=== PATIENT | male | born 1940 | race Caucasian/White ===

== ENCOUNTER → 2017-04-23 | Outpatient (CLI) | payer OTHER ==
[~2017-04-23] MED LIST: ADULT LOW DOSE81 MG PO; ADVAIR HFA 1112 UNIT INH; ADVAIR HFA115 MCG/21 INH; APAP500 PO; COLACE 100 MG100 MG PO; FLOMAX0.4 MG PO; HYDROCODONE-AP1 EAC6 PO; IRON PO; LASIX 40 MG TAB40 M2 PO; LEVAQUIN 500 M500 M2 PO; LIPITOR 20 MG T20 M1 PO; MELATONIN5 M1 PO; MUCINEX TA600 MG/TA1 PO; NAPROSYN500 MG PO; NEURONTIN 300300 M1 PO; NEXIUM40 M2 PO; NYSTATIN 1100000 U/M PO; PREDNISONE 10 M10 MG PO; PROAIR HFA8.5 GM INH; PROSCAR 5MG TABL5 MG PO; SPIRIVA INH; SYMBICORT160 MCG/4. INH; VITAMIN D1000 UNI1 PO
== END ==
LOC: CAT 08:06
DX: R91.8 Other nonspecific abnormal finding of lung field (principal)

== ENCOUNTER → 2017-08-23 | Outpatient (CLI) | payer OTHER | LOC: NUC 08-20 10:23 | DX: E21.3 Hyperparathyroidism, unspecified (principal) ==

== ENCOUNTER → 2017-08-24 | Outpatient (CLI) | payer OTHER | LOC: CAT 12:46 | DX: I31.3 Pericardial effusion (noninflammatory) (principal); R91.8 Other nonspecific abnormal finding of lung field; J90 Pleural effusion, not elsewhere classified ==

== ENCOUNTER → 2017-11-26 | Outpatient (CLI) | payer OTHER | LOC: ULTRA 11-05 21:21 | DX: E21.3 Hyperparathyroidism, unspecified (principal); R94.6 Abnormal results of thyroid function studies; I12.9 Hypertensive chronic kidney disease with stage 1 through stage 4 chronic kidney disease, or unspecified chronic kidney disease; N18.9 Chronic kidney disease, unspecified; J18.9 Pneumonia, unspecified organism; J96.20 Acute and chronic respiratory failure, unspecified whether with hypoxia or hypercapnia; N17.9 Acute kidney failure, unspecified; J44.1 Chronic obstructive pulmonary disease with (acute) exacerbation; J44.0 Chronic obstructive pulmonary disease with (acute) lower respiratory infection; G31.84 Mild cognitive impairment of uncertain or unknown etiology; I80.9 Phlebitis and thrombophlebitis of unspecified site; N40.0 Benign prostatic hyperplasia without lower urinary tract symptoms; K21.9 Gastro-esophageal reflux disease without esophagitis; E78.5 Hyperlipidemia, unspecified; G62.9 Polyneuropathy, unspecified; Z99.81 Dependence on supplemental oxygen; Z98.890 Other specified postprocedural states; Z87.891 Personal history of nicotine dependence; Z90.49 Acquired absence of other specified parts of digestive tract ==

== ENCOUNTER → 2018-04-12 | Outpatient (CLI) | payer OTHER | LOC: CAT 06:56 | DX: R91.1 Solitary pulmonary nodule (principal); I70.0 Atherosclerosis of aorta; J98.4 Other disorders of lung; M47.894 Other spondylosis, thoracic region; R91.8 Other nonspecific abnormal finding of lung field ==

== ENCOUNTER 2018-10-12 17:20 | Inpatient (IN) | payer OTHER ==
[~2018-10-12] VITALS: Ht 185.4 cm; Wt 59.9 kg
--- NOTE | ~2018-10-12 | EKG ---
[address] [address] ELECTROCARDIOGRAM REPORT Name: MIGUEL RODRIGUEZNE Jose Room #: 456-P ADM IN M.R.#: [id number] Admission: 10/12/18 Attend Phys: Josias Keenan MD Discharge: Date of : 36 Report #: [id number] THIS REPORT FOR: //name// [facility] ED Test Date: 2018-10-12 Test Time: 17:45:32 Pat Name: INDU RODRIGUEZ Department: Room: [facility] Gender: M Philosophy Lecturer: : 1940 Requested By: Lidia Tony Order Number: [id number] MD: José Miguel Adler Measurements Intervals [place] Rate: 99 P: 76 DC: 112 QRS: 65 QRSD: 98 T: 37 QT: 333 QTc: 428 Interpretive Statements Sinus rhythm Left ventricular hypertrophy Non specific ST/T wave changes Compared to ECG 12/13/2016 14:36:22 Left ventricular hypertrophy now present Electronically Signed On 10-13-2018 23:38:47 [employer] by José Miguel Adler [email or web address] <ELECTRONICALLY SIGNED> By: José Miguel Adler MD 10/13/18 2338 1745 [id number] José Miguel Adler MD /EPI
--- NOTE | ~2018-10-12 | 2DMMODE ---
[facility] [place] [address] 2 D/M-MODE ECHOCARDIOGRAM Name: INDU RODRIGUEZ Jose Room #: 456-P [facility] IN ..#: [id number] Admission: 10/12/18 Attend Phys: Fahad Nolen MD Discharge: Date of : 36 Date of Service: 10/16/18 1430 Report #: [id number] THIS REPORT FOR: //name// APPROVED REPORT Study performed: 10/16/2018 12:56:17 EXAM: Comprehensive 2D, Doppler, and color-flow Echocardiogram Patient Location: Bedside Room #: [facility] Status: routine BSA: 1.80 HR: 83 bpm BP: 118/59 mmHg Rhythm: NSR Other Information Study Quality: Adequate Technically limited study due to COPD. Indications High grade staphylococcal bacteremia, short of breath. Hx: COPD, HTN, HLP 2D Dimensions RVDd: 35.47 mm IVSd: 12.00 (7-11mm) LVOT Diam: 21.00 (18-24mm) LVDd: 42.00 mm PWd: 12.00 (7-11mm) LVDs: 23.00 (25-40mm) Aortic Root: 37.00 mm Volumes Left Atrial Volume (Systole) Single Plane 4CH: 21.09 mL Single Plane 2CH: 19.40 mL LA ESV Index: 12.00 mL/m2 Aortic Valve AoV Peak Yrn.: 1.81 m/s AO Peak Gr.: 13.11 mmHg LVOT Max P.26 mmHg LVOT Max V: 1.44 m/s SAMIA Vmax: 2.75 cm2 Mitral Valve E/A Ratio: 0.8 [facility] [address] [place] [address] 2 D/M-MODE ECHOCARDIOGRAM Name: INDU RODRIGUEZ Room #: 456-P [facility]#: [id number] Admission: 10/12/18 Attend Phys: Fahad Nolen MD Discharge: Date of : 36 Date of Service: 10/16/18 1430 Report #: [id number] MV Decel. Time: 214.81 ms MV E Max Yrn.: 0.99 m/s MV A Yrn.: 1.22 m/s MV PHT: 62.29 ms IVRT: 50.75 ms Pulmonary Valve PV Peak Yrn.: 1.42 m/s PV Peak Gr.: 8.09 mmHg Pulmonary Vein P Vein S: 0.71 m/s P Vein A: 0.58 m/s P Vein D: 0.32 m/s P Vein A Dur.: 115.3 msec P Vein S/D Ratio: 2.22 Tricuspid Valve TR Peak Yrn.: 2.89 m/s RAP Estimate: 10.00 mmHg TR Peak Gr.: 33.48 mmHg PA Pressure: 44.00 mmHg Left Ventricle The left ventricle is normal size. There is normal LV segmental wall motion. Mild concentric left ventricular hypertrophy. Left ventricular systolic function is normal. LVEF is 65-70%. Mild diastolic dysfunction is present (impaired relaxation pattern). Right Ventricle The right ventricle is normal size. The right ventricular systolic function is normal. Atria The left atrium size is normal. The right atrium size is normal. Aortic Valve The Aortic valve is sclerotic. No aortic regurgitation is present. There is no aortic valvular stenosis. Mitral Valve The mitral valve is normal in structure. There is no mitral valve regurgitation noted. No evidence of mitral valve stenosis. Tricuspid Valve The tricuspid valve is normal in structure. Trace tricuspid regurgitation. Estimated PAP is 40-45mmHg. [place] [id number] 2 D/M-MODE ECHOCARDIOGRAM Name: INDU RODRIGUEZ Room #: 456-P [facility] IN ..#: [id number] Admission: 10/12/18 Attend Phys: Fahad Nolen MD Discharge: Date of : 36 Date of Service: 10/16/18 1430 Report #: [id number] Pulmonic Valve Pulmonic valve is not well visualized. Great Vessels Aortic root is borderline dilated. Ascending aorta is not well visualized. IVC is normal in size and collapses <50% with inspiration. Pericardium Small anterior pericardial effusion noted. Possible left pleural effusion noted. <Conclusion> The left ventricle is normal size. LVEF is 65-70%. The Aortic valve is sclerotic. The mitral valve is normal in structure. The tricuspid valve is normal in structure. Pulmonic valve is not well visualized. Aortic root is borderline dilated. Ascending aorta is not well visualized. Small anterior pericardial effusion noted. Possible left pleural effusion noted. <ELECTRONICALLY SIGNED> By: José Miguel Adler MD 10/16/18 1430 1430 143 José Miguel Adler MD /INF
[2018-10-12 17:21] VITALS: BP 151/69
[2018-10-12 17:32] LABS: HEMATOCRIT 28.4 % (42.0-52.0); HEMOGLOBIN 9.3 gm/dL (14.0-18.0); MCH 27.7 pg (26.0-34.0); MCHC 32.6 g/dL (28.0-37.0); MCV 84.9 fL (80.0-100.0); RBC 3.35 mil/uL (4.50-6.00); RDW 14.8 % (10.5-14.5); WBC 16.3 thou/uL (4.0-11.0)
[2018-10-12 17:39] LABS: ANION GAP 0 mmol/L (7-16); BUN 29 mg/dL (7-18); CALCIUM 11.6 mg/dL (8.5-10.1); CHLORIDE 103 mmol/L (98-107); CO2 41 mmol/L (21-32); CREATININE 1.2 mg/dL (0.7-1.3); GLUCOSE 123 mg/dL (74-106); POTASSIUM 4.4 mmol/L (3.5-5.1); SODIUM 144 mmol/L (136-145)
[2018-10-12 17:42] LABS: URINE BILIRUBIN NEGATIVE (Negative); URINE BLOOD 1+ (Negative); URINE CLARITY CLEAR; URINE COLOR YELLOW; URINE GLUCOSE-RANDOM* NEGATIVE (Negative); URINE KETONES NEGATIVE (Negative); URINE LEUKOCYTES-REFLEX NEGATIVE (Negative); URINE NITRITE-REFLEX NEGATIVE (Negative); URINE PROTEIN (DIPSTICK) NEGATIVE (Negative); URINE SPECIFIC GRAVITY 1.025 (1.005-1.035); URINE UROBILINOGEN 0.2 E.U./dl (0.2-1.0)
[2018-10-12 17:43] LABS: BACTERIA-REFLEX None Seen /HPF (None Seen); CASTS None Seen /LPF (None Seen); CRYSTALS None Seen /LPF (None Seen); SQUAMOUS None Seen /LPF (0-3); URINE RBC 3-10 Few /HPF (0-2); URINE WBC-REFLEX None Seen /HPF (0-5)
[2018-10-12 17:48] LABS: ALBUMIN 3.5 g/dL (3.4-5.0); SGOT 16 U/L (15-37); SGPT 15 U/L (30-65); TOTAL BILIRUBIN 0.3 mg/dL (<0.1-1.0); TOTAL PROTEIN 8.4 g/dL (6.4-8.2); TROPONIN-I <0.06 ng/mL (<0.06)
[2018-10-12] MEDS ORDERED: CENTRUM SILVER1 EAC4 PO (17:56)
[2018-10-12] MEDS ORDERED: IRON325 PO (17:56)
[2018-10-12] MEDS ORDERED: VITAMIN D2000 UNIT PO (17:57)
[2018-10-12] MEDS ORDERED: MEGESTROL ACETATE PO (17:59)
[2018-10-12] MEDS ORDERED: MUCINEX600 MG PO (18:01)
[2018-10-12] MEDS ORDERED: VENTOLIN HFA INH8 GM INH (18:02)
[2018-10-12] MEDS ORDERED: ALBUTEROL2.5 MG/31 INH (18:02)
[2018-10-12 19:39] VITALS: BP 148/78
[2018-10-12 19:59] VITALS: BP 149/78
[2018-10-12 20:14] VITALS: BP 160/72
[2018-10-13 05:53] LABS: HEMATOCRIT 22.7 % (42.0-52.0); HEMOGLOBIN 7.5 gm/dL (14.0-18.0); MCH 28.1 pg (26.0-34.0); MCHC 33.1 g/dL (28.0-37.0); MCV 84.9 fL (80.0-100.0); RBC 2.67 mil/uL (4.50-6.00); RDW 14.3 % (10.5-14.5)
[2018-10-13 06:03] VITALS: BP 90/48
[2018-10-13 06:04] LABS: CALCIUM 10.7 mg/dL (8.5-10.1); CREATININE 1.2 mg/dL (0.7-1.3); POTASSIUM 4.3 mmol/L (3.5-5.1)
[2018-10-13 07:09] VITALS: BP 93/44
[2018-10-13 14:10] VITALS: BP 109/43
[2018-10-13 21:00] VITALS: BP 87/70
[2018-10-14 02:00] VITALS: BP 160/79
[2018-10-14 06:06] LABS: HEMATOCRIT 23.5 % (42.0-52.0); HEMOGLOBIN 7.6 gm/dL (14.0-18.0); MCH 27.5 pg (26.0-34.0); MCHC 32.3 g/dL (28.0-37.0); MCV 85.2 fL (80.0-100.0); RBC 2.76 mil/uL (4.50-6.00); RDW 14.4 % (10.5-14.5); WBC 8.1 thou/uL (4.0-11.0)
[2018-10-14 06:19] LABS: CALCIUM 10.7 mg/dL (8.5-10.1); CREATININE 1.2 mg/dL (0.7-1.3); POTASSIUM 4.1 mmol/L (3.5-5.1)
[2018-10-14 08:00] VITALS: BP 117/61
[2018-10-14 15:05] VITALS: BP 153/65
[2018-10-14 16:04] VITALS: BP 137/60
[2018-10-14 19:56] VITALS: BP 137/60
[2018-10-14 20:42] VITALS: BP 147/69
[2018-10-15 04:14] VITALS: BP 118/48
[2018-10-15 05:36] LABS: HEMATOCRIT 22.5 % (42.0-52.0); HEMOGLOBIN 7.2 gm/dL (14.0-18.0); MCH 27.4 pg (26.0-34.0); MCHC 32.2 g/dL (28.0-37.0); MCV 84.9 fL (80.0-100.0); RBC 2.65 mil/uL (4.50-6.00); RDW 14.7 % (10.5-14.5); WBC 9.9 thou/uL (4.0-11.0)
[2018-10-15 05:52] LABS: ABSOLUTE RETIC COUNT 0.0226 10^6/uL; OBSERVED RETIC COUNT 0.86 % (0.6-2.6)
[2018-10-15 05:56] LABS: % SATURATION 24 % (20-39); IRON 30 ug/dL (65-175); TIBC 124 ug/dL (250-450)
[2018-10-15 05:59] LABS: CALCIUM 10.2 mg/dL (8.5-10.1); CREATININE 1.3 mg/dL (0.7-1.3); MAGNESIUM 2.1 mg/dL (1.8-2.4); POTASSIUM 4.5 mmol/L (3.5-5.1)
[2018-10-15 07:15] VITALS: BP 104/51
[2018-10-15 07:50] LABS: FERRITIN 501 ng/mL (26-388)
[2018-10-15 15:35] VITALS: BP 110/63
[2018-10-15 19:49] VITALS: BP 120/49
[2018-10-16 04:25] VITALS: BP 130/58
[2018-10-16 09:01] VITALS: BP 118/59
[2018-10-16 16:58] VITALS: BP 138/50
[2018-10-16 20:08] VITALS: BP 130/43
[2018-10-17 04:47] VITALS: BP 126/54
[2018-10-17 07:22] VITALS: BP 108/50
[2018-10-17 13:50] LABS: HEMOGLOBIN 7.7 gm/dL (14.0-18.0); MCH 27.6 pg (26.0-34.0); MCHC 32.1 g/dL (28.0-37.0); MCV 86.1 fL (80.0-100.0); RBC 2.79 mil/uL (4.50-6.00); RDW 14.7 % (10.5-14.5); WBC 9.2 thou/uL (4.0-11.0)
[2018-10-17 14:02] LABS: CALCIUM 10.5 mg/dL (8.5-10.1); CREATININE 1.3 mg/dL (0.7-1.3); MAGNESIUM 2.5 mg/dL (1.8-2.4); POTASSIUM 4.9 mmol/L (3.5-5.1)
[2018-10-17 14:43] VITALS: BP 113/59
[2018-10-17 19:54] VITALS: BP 118/45
[2018-10-18 03:28] VITALS: BP 107/68
[2018-10-18 05:51] LABS: HEMOGLOBIN 6.5 gm/dL (14.0-18.0); MCH 28.2 pg (26.0-34.0); MCHC 32.8 g/dL (28.0-37.0); MCV 85.9 fL (80.0-100.0); RBC 2.32 mil/uL (4.50-6.00); RDW 14.3 % (10.5-14.5)
[2018-10-18 05:56] LABS: HEMATOCRIT 19.9 % (42.0-52.0)
[2018-10-18 06:03] LABS: CALCIUM 9.8 mg/dL (8.5-10.1); CREATININE 1.3 mg/dL (0.7-1.3); MAGNESIUM 2.5 mg/dL (1.8-2.4); POTASSIUM 4.8 mmol/L (3.5-5.1)
[2018-10-18 08:39] VITALS: BP 121/50
[2018-10-18 09:23] VITALS: BP 108/44; BP 121/46
[2018-10-18 14:37] LABS: HEMATOCRIT 24.3 % (42.0-52.0); HEMOGLOBIN 8.2 gm/dL (14.0-18.0); MCH 28.8 pg (26.0-34.0); MCHC 33.7 g/dL (28.0-37.0); MCV 85.4 fL (80.0-100.0); RBC 2.85 mil/uL (4.50-6.00); RDW 14.1 % (10.5-14.5); WBC 8.3 thou/uL (4.0-11.0)
[2018-10-18 14:46] VITALS: BP 119/44
[2018-10-18 19:08] VITALS: BP 110/41
[2018-10-19 03:19] VITALS: BP 94/46
[2018-10-19 05:29] LABS: HEMATOCRIT 24.4 % (42.0-52.0); HEMOGLOBIN 8.2 gm/dL (14.0-18.0); MCH 28.8 pg (26.0-34.0); MCHC 33.7 g/dL (28.0-37.0); MCV 85.5 fL (80.0-100.0); RBC 2.86 mil/uL (4.50-6.00); RDW 14.2 % (10.5-14.5); WBC 9.1 thou/uL (4.0-11.0)
[2018-10-19 06:49] LABS: CALCIUM 9.8 mg/dL (8.5-10.1); CREATININE 1.1 mg/dL (0.7-1.3); MAGNESIUM 2.3 mg/dL (1.8-2.4); POTASSIUM 4.7 mmol/L (3.5-5.1)
[2018-10-19 07:30] VITALS: BP 112/55
[2018-10-19 15:36] VITALS: BP 115/45
[2018-10-19 19:36] VITALS: BP 115/44
[2018-10-20 04:46] VITALS: BP 117/49
[2018-10-20 07:11] LABS: HEMATOCRIT 25.3 % (42.0-52.0); HEMOGLOBIN 8.5 gm/dL (14.0-18.0); MCH 28.6 pg (26.0-34.0); MCHC 33.7 g/dL (28.0-37.0); RBC 2.98 mil/uL (4.50-6.00); RDW 14.4 % (10.5-14.5); WBC 9.4 thou/uL (4.0-11.0)
[2018-10-20 07:20] LABS: ANION GAP < 0 mmol/L (7-16); BUN 26 mg/dL (7-18); CALCIUM 10.8 mg/dL (8.5-10.1); CHLORIDE 102 mmol/L (98-107); CO2 35 mmol/L (21-32); CREATININE 1.2 mg/dL (0.7-1.3); GLUCOSE 115 mg/dL (74-106); MAGNESIUM 2.4 mg/dL (1.8-2.4); POTASSIUM 4.2 mmol/L (3.5-5.1); SODIUM 136 mmol/L (136-145)
[2018-10-20 08:00] VITALS: BP 119/49
[2018-10-20 16:00] VITALS: BP 128/56
[2018-10-20 20:09] VITALS: BP 125/55
[2018-10-21 03:18] VITALS: BP 119/54
[2018-10-21 04:24] LABS: CALCIUM 10.2 mg/dL (8.5-10.1); CREATININE 1.2 mg/dL (0.7-1.3); MAGNESIUM 2.1 mg/dL (1.8-2.4); POTASSIUM 4.5 mmol/L (3.5-5.1)
[2018-10-21 04:27] LABS: HEMATOCRIT 24.1 % (42.0-52.0); HEMOGLOBIN 8.1 gm/dL (14.0-18.0); MCH 28.9 pg (26.0-34.0); MCHC 33.7 g/dL (28.0-37.0); MCV 85.9 fL (80.0-100.0); RBC 2.8 mil/uL (4.50-6.00); RDW 14.7 % (10.5-14.5)
[2018-10-21 08:53] VITALS: BP 111/45
[2018-10-21] MEDS ORDERED: LEVAQUIN 500 M500 M1 PO (14:16)
[2018-10-21] MEDS ORDERED: VOLTAREN GEL 1100 G1 TOP (14:17)
[2018-10-21] MEDS ORDERED: LACTULOSE20 GM/30 M PO (14:18)
[2018-10-21] MEDS ORDERED: MIRALAX17 GM PO (14:18)
[2018-10-21 14:54] VITALS: BP 126/60
== END 2018-10-21 17:40 | DRG 871 ==
LOC: ER 17:20 → EROBS 19:20 → 4W 19:20
PROVIDERS: Hospitalist; Internal Medicine; Nurse Practitioner Family; Student in an Organized Health Care Education/Training Program
PROC: 30233N1 Transfusion of Nonautologous Red Blood Cells into Peripheral Vein, Percutaneous Approach (ICD-10-PCS; principal; 2018-10-18)
DX: A41.9 Sepsis, unspecified organism (principal); J18.9 Pneumonia, unspecified organism; J96.21 Acute and chronic respiratory failure with hypoxia; J96.22 Acute and chronic respiratory failure with hypercapnia; E43 Unspecified severe protein-calorie malnutrition; J44.0 Chronic obstructive pulmonary disease with (acute) lower respiratory infection; J44.1 Chronic obstructive pulmonary disease with (acute) exacerbation; Z68.1 Body mass index [BMI] 19.9 or less, adult; E78.5 Hyperlipidemia, unspecified; N18.3 Chronic kidney disease, stage 3 (moderate); D64.9 Anemia, unspecified; G47.00 Insomnia, unspecified; I12.9 Hypertensive chronic kidney disease with stage 1 through stage 4 chronic kidney disease, or unspecified chronic kidney disease; N40.0 Benign prostatic hyperplasia without lower urinary tract symptoms; M13.862 Other specified arthritis, left knee; M25.462 Effusion, left knee; Z99.81 Dependence on supplemental oxygen; Z87.891 Personal history of nicotine dependence; Z90.49 Acquired absence of other specified parts of digestive tract; Z79.82 Long term (current) use of aspirin; Z79.899 Other long term (current) drug therapy; Z88.0 Allergy status to penicillin
CPT/HCPCS: 10045